=== PATIENT | male | born 1955 | race Caucasian/White ===

== ENCOUNTER → 2018-07-19 | Outpatient (CLI) | payer OTHER ==
[~2018-07-19] MED LIST: ATIVAN1 MG PO; LISINOPRIL10 MG PO; NEXIUM40 MG PO; NORCO 5-325 TA1 EACH PO; PRENATAL COMPL1 EACH PO; VITAMIN B-1100 M1 PO; XANAX 0.5 MG0.5 MG PO
== END ==
LOC: M.MRI 14:06
DX: M47.22 Other spondylosis with radiculopathy, cervical region (principal); M50.122 Cervical disc disorder at C5-C6 level with radiculopathy; M48.02 Spinal stenosis, cervical region; M25.78 Osteophyte, vertebrae

== ENCOUNTER → 2019-04-10 | Outpatient (CLI) | payer OTHER | LOC: M.WC 08:00 | DX: L72.3 Sebaceous cyst (principal); K21.9 Gastro-esophageal reflux disease without esophagitis; F10.239 Alcohol dependence with withdrawal, unspecified; F17.200 Nicotine dependence, unspecified, uncomplicated ==

== ENCOUNTER → 2019-04-17 | Outpatient (CLI) | payer OTHER | LOC: M.WC 05:11 | DX: L72.3 Sebaceous cyst (principal); K21.9 Gastro-esophageal reflux disease without esophagitis; F17.200 Nicotine dependence, unspecified, uncomplicated; F10.239 Alcohol dependence with withdrawal, unspecified ==

== ENCOUNTER → 2019-08-13 | Outpatient (CLI) | payer OTHER | LOC: M.ULTRA 07:54 | DX: K76.9 Liver disease, unspecified (principal) ==

== ENCOUNTER → 2020-07-28 | Outpatient (CLI) | payer OTHER | LOC: M.NUC 12:11 | PROVIDERS: ATTEND Internal Medicine Gastroenterology | DX: R10.9 Unspecified abdominal pain (principal) ==

== ENCOUNTER 2021-03-15 09:58 | Emergency (ER) | payer OTHER ==
[~2021-03-15] VITALS: Ht 182.9 cm; Wt 70.3 kg
[2021-03-15 10:32] LABS: ABSOLUTE BASOPHILS 0.1 thou/uL (0.0-0.2); ABSOLUTE EOSINOPHILS 0.1 thou/uL (0.0-0.7); ABSOLUTE MONOCYTES 0.9 thou/uL (0.0-1.2); ABSOLUTE NEUTROPHILS 5.9 thou/uL (1.6-8.1); BASOPHILS 0.7 %; EOSINOPHILS 0.6 %; HEMATOCRIT 44.2 % (42.0-52.0); HEMOGLOBIN 15.1 gm/dL (14.0-18.0); LYMPHOCYTES 30.1 %; MCH 33.2 pg (26.0-34.0); MCHC 34.2 g/dL (28.0-37.0); MONOCYTES 8.8 %; MPV 7.7 fl. (7.2-11.1); NUCLEATED RBCS 0 /100WBC; PLATELET COUNT* 257 thou/uL (150-400); POLYS 59.8 %; RBC 4.56 mil/uL (4.50-6.00); RDW-CV 12.5 % (10.5-14.5); WBC 9.9 thou/uL (4.0-11.0)
[2021-03-15 10:40] LABS: CALCIUM 8.6 mg/dL (8.5-10.1); POTASSIUM 3.4 mmol/L (3.5-5.1)
[2021-03-15 10:44] LABS: ALBUMIN 3.3 g/dL (3.4-5.0); TOTAL BILIRUBIN 0.7 mg/dL (<0.1-1.0); TOTAL PROTEIN 6.6 g/dL (6.4-8.2)
[2021-03-15 11:12] LABS: URINE BILIRUBIN NEGATIVE (Negative); URINE BLOOD NEGATIVE (Negative); URINE CLARITY CLEAR; URINE COLOR YELLOW; URINE GLUCOSE-RANDOM NEGATIVE (Negative); URINE KETONES NEGATIVE (Negative); URINE LEUKOCYTES-REFLEX NEGATIVE (Negative); URINE NITRITE-REFLEX NEGATIVE (Negative); URINE PROTEIN NEGATIVE (Negative); URINE SPECIFIC GRAVITY 1.025 (1.005-1.030); URINE UROBILINOGEN 0.2 E.U./dl (0.2-1.0)
[2021-03-15] MEDS ORDERED: ZOFRAN ODT4 MG PO ×2 (12:46→13:01)
[2021-03-15] MEDS ORDERED: BENTYL 10 MG CA10 M1 PO ×2 (12:46→13:01)
[2021-03-15 13:02] VITALS: BP 132/62
--- NOTE | 2021-03-15 15:31 | EKG ---
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[id number] Requested By: Jesica Song Order Number: [id number] MD: Masoud Strong Measurements Intervals [place] Rate: 71 P: 111 SD: 144 QRS: 148 QRSD: 113 T: 101 QT: 421 QTc: 458 Interpretive Statements Sinus rhythm Probable left atrial enlargement Left posterior fascicular block Borderline low voltage, extremity leads Nonspecific T abnormalities, lateral leads Compared to ECG 12/15/2013 14:00:00 Left posterior fascicular block now present T-wave abnormality now present Sinus arrhythmia no longer present Electronically Signed On 03-15-2021 15:31:10 CDT by Masoud Strong [email or web address] <ELECTRONICALLY SIGNED> By: Masoud Strong MD, [facility] 03/15/21 1531 1028 1028 Masoud Strong MD, [facility] /EPI
== END 2021-03-15 13:03 | disposition home or self-care (01) ==
LOC: M.ERS 09:58
PROVIDERS: Nurse Practitioner Family
DX: K76.0 Fatty (change of) liver, not elsewhere classified (principal); Z87.891 Personal history of nicotine dependence; Z88.0 Allergy status to penicillin